=== PATIENT | female | born 1985 | race Two or more races ===

== ENCOUNTER 2020-07-19 15:39 | Emergency (ER) | payer OTHER, MEDICAID ==
[~2020-07-19] VITALS: Ht 149.9 cm; Wt 66.7 kg
--- NOTE | 2020-07-19 16:07 | NUR ---
ED Nurse Note: pt presents to ED c/o fever and cough x 3 days. pt reports fever of 102 at home, she is noted to be febrile in triage as well, pt states she took 500mg of tylenol at 0900 today. pt also states that her throat is sore and that she has lost her sense of taste, and decreased appetite for 2 days. pt states that she had a (-) COVID test 06/20 and has not been tested again since
[2020-07-19 16:09] VITALS: BP 132/78
--- NOTE | 2020-07-19 16:30 | Emergency Room Report ---
History of Present Illness General Chief Complaint: Fever Source: Patient (Raghav Zhu) Present Illness HPI 34-year-old female with no signal past medical history here complaining of 2 days of loss of taste and smell, cough and congestion, and fever. Patient reports the symptoms started 2 days after she came back from visiting her friend. Also reported her and her daughter are sick at home. Has not taken medication for symptom relief. Appears to have temperature of 102, has not been tested for Covid. Sitting comfortably and oxygenation within normal limits. Denies . (Raghav Zhu) Allergies: Coded Allergies: CEPHALEXIN (Verified Allergy, Unknown, 07/19/20) COVID-19 Screening Contact w/high risk pt: No Experienced COVID-19 symptoms?: Yes COVID-19 Testing performed [employer]: Yes COVID-19 Screening: Negative COVID-19 COVID-19 Testing Source: 06/20/2020 (Raghav Zhu) Patient History Past Medical History: see triage record Past Surgical History: none Pertinent Family History: none Now: No Immunizations: UTD Reviewed Nursing Documentation: PMH: Agreed; PSxH: Agreed (Raghav Zhu) Nursing Documentation-PMH Past Medical History: No Stated History (Raghav Zhu) Review of Systems All Other Systems: negative except mentioned in HPI (Raghav Zhu) Physical Exam Vital Signs Date Time Temp Pulse Resp B/P (MAP) Pulse Ox O2 Delivery O2 Flow Rate FiO2 07/19/20 15:55 102.6 9 19 132/78 (96) 95 Room Air Sp02 EP Interpretation: abnormal - Elevated temperature General Appearance: well appearing Head: normocephalic, atraumatic Eyes: bilateral eye normal inspection, bilateral eye PERRL ENT: hearing grossly normal, no angioedema, normal voice Neck: full range of motion Respiratory: no respiratory distress Cardiovascular #1: regular rate, rhythm, no edema Gastrointestinal: non-distended Musculoskeletal: back normal Neurologic: alert, motor strength/tone normal, oriented x3, sensory intact, responsive, speech normal Psychiatric: judgement/insight normal, memory normal, mood/affect normal, no suicidal/homicidal ideation Skin: no rash Lymphatic: no adenopathy (Raghav Zhu) Medical Decision Making PA Attestation All diagnoses and treatment plans were reviewed and discussed with my supervising physician Dr. Childress (Raghav Zhu) Diagnostic Impression: Primary Impression: Respiratory tract infection due to COVID-19 virus ER Course 34-year-old female with no signal past medical history here complaining of 2 days of loss of taste and smell, cough and congestion, and fever. Patient reports the symptoms started 2 days after she came back from visiting her fri end. Also reported her and her daughter are sick at home. Has not taken medication for symptom relief. Appears to have temperature of 102, has not been tested for Covid. Sitting comfortably and oxygenation within normal limits. Denies . Ddx considered but are not limited to: bronchitis, PNA, URI viral, bacterial bronchitis, Covid pneumonia Vital signs: are WNL, pt. is febrile H&PE are most consistent with: Respiratory tract infection due to COVID-19 virus ORDERS: Chest x-ray, azithromycin, prednisone, albuterol, promethazine ED INTERVENTIONS: None required at this time. DISCHARGE: At this time pt. is stable for d/c to home. Will provide printed patient care instructions, and any necessary prescriptions. Care plan and follow up instructions have been discussed with the patient prior to discharge. Patient take medication as directed, self isolate, follow-up with primary care provider, if worsening symptom return to the emergency room also highly recommend you get tested for Covid (Raghav Zhu) Chest X-Ray Diagnostic Results Chest X-Ray Diagnostic Results : Chest X-Ray Ordered: Yes # of Views/Limited/Complete: 1 View Indication: Shortness of Breath EP Interpretation: Yes PA Xray: Interpretation reviewed, by supervising MD, and agrees with findings. Interpretation: other - patchy infiltrates Impression: Other - covid PNA Electronically Signed by: Raghav Ponce PA-C (Raghav Zhu) Chest X-Ray Diagnostic Results : Electronically Signed by: Patel Díaz documentation of Xray reviewed by me and is accurate, Capo Childress MD (Capo Childress MD) Last Vital Signs Date Time Temp Pulse Resp B/P (MAP) Pulse Ox O2 Delivery O2 Flow Rate FiO2 07/19/20 16:09 102.6 90 19 132/78 95 Room Air (Raghav Zhu) Disposition: HOME, SELF-CARE Condition: Stable Scripts Acetaminophen* (TYLENOL EXTRA STRENGTH*) 500 Mg Tablet 500 MG ORAL Q8H PRN for Prn Headache/Temp > 101, #30 TAB 0 Refills Prov: Raghav Zhu 07/19/20 Albuterol Sulfate (VENTOLIN HFA) 18 Gm Hfa.aer.ad 2 PUFFS INH EVERY 6 HOURS, #18 GM 0 Refills Prov: Raghav Zhu 07/19/20 Promethazine Hcl (PROMETHAZINE HCL*) 6.25 Mg/5 Ml Syrup 5 ML ORAL Q8H, #120 ML 0 Refills Prov: Raghav Zhu 07/19/20 Prednisone* (PREDNISONE*) 20 Mg Tablet 40 MG ORAL DAILY for 5 Days, #10 TAB Prov: Raghav Zhu 07/19/20 Azithromycin* (ZITHROMAX*) 250 Mg Tablet 250 MG ORAL DAILY, #6 TAB 0 Refills Take two tables once daily for 1 day, then one tablet once daily for 4 days. Prov: Raghav Zhu 07/19/20 Patient Instructions: Upper Respiratory Infection, Adult, [id number], Fever, Adult Additional Instructions: Take medication as directed, follow-up with your primary care provider, self isolate, if worsening symptoms return to the emergency Raghav Zhu Jul 19, 2020 16:30 Capo Childress MD Jul 20, 2020 04:36
[2020-07-19] MEDS ORDERED: PROMETHAZI6.25 MG/1 ORAL (16:32)
[2020-07-19] MEDS ORDERED: PREDNISONE20 MG ORAL (16:32)
[2020-07-19] MEDS ORDERED: ZITHROMAX250 MG ORAL (16:32)
[2020-07-19] MEDS ORDERED: VENTOLIN HFA18 GM INH (16:32)
[2020-07-19] MEDS ORDERED: TYLENOL EXTRA500 MG ORAL (16:32)
[2020-07-19 16:38] VITALS: BP 132/78
--- NOTE | 2020-07-19 16:38 | NUR ---
ER DISCHARGE NOTE: Patient is cleared to be discharged per ERMD, pt is aox4, on room air, with stable vital signs. pt was given dc and prescription instructions, pt was able to verbalize understanding, pt id band removed without complications. pt is able to ambulate with steady gait. pt took all belongings.
--- NOTE | 2020-07-19 17:29 | Diagnostic Imaging Report ---
Indication: Shortness of breath Technique: One view of the chest Comparison: none Findings: Suboptimal inspiration. The heart size is upper limits normal. There is questionable streaky perihilar interstitial opacities, although these may possibly be an artifact of low lung volumes. The pleural spaces are clear. Impression: Questionable bilateral perihilar infiltrates, versus artifact of low lung volumes. Correlate with clinical findings
== END 2020-07-19 16:38 | disposition home or self-care (01) ==
LOC: EMR 16:00
DX: U07.1 COVID-19 (principal); J98.8 Other specified respiratory disorders; Z88.1 Allergy status to other antibiotic agents
CPT/HCPCS: 71045; 99283